=== PATIENT | male | born 2000 | race Caucasian/White ===

== ENCOUNTER 2024-01-21 22:06 | Emergency (ER) | payer OTHER, SELFPAY ==
[2024-01-21 22:10] VITALS: BP 150/86; PULSE 96; TEMP 36.9; O2SAT 98; BMI 25.8
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
== END 2024-01-22 01:05 | disposition home or self-care (01) ==
PROVIDERS: Emergency Provider Internal Medicine; PCP Pediatrics
DX: S16.1XXA Strain of muscle, fascia and tendon at neck level, initial encounter (principal); R51.9 Headache, unspecified; V49.88XA Car occupant (driver) (passenger) injured in other specified transport accidents, initial encounter; Y93.89 Activity, other specified
CPT/HCPCS: 70450; 72125; 99284